=== PATIENT | male | born 1930 | race Caucasian/White ===

== ENCOUNTER 2018-04-27 16:44 | Inpatient (IN) | payer MEDICARE ==
[2018-04-27] MEDS ORDERED: Bisacodyl 10 MG SUPP PR PRN (19:16)
[2018-04-27] MEDS: Senokot S 8.6-50 MG TAB PO SCH (22:04)
[2018-04-27] MEDS: guaiFENesin ER 600 MG TAB PO SCH (22:04)
[2018-04-27] MEDS: Atorvastatin Calcium 10 MG TAB PO SCH (22:04)
[2018-04-27] MEDS: Divalproex Sodium 125 mg Sprinkle Capsule PO SCH (22:04)
[2018-04-27] MEDS: Tamsulosin HCl 0.4 MG CAP PO SCH (22:05)
[2018-04-27] MEDS: hydrALAZINE 25 MG TAB PO SCH (22:05)
[2018-04-27] MEDS: Fluticasone Propionate Nasal Spray 16 gm Bottle NASAL SCH (22:34)
[2018-04-27] MEDS: Acetaminophen 500 MG TAB PO SCH (23:19)
[2018-04-27] MEDS: traMADol HCl 50 MG TAB PO SCH (23:19)
[2018-04-27] MEDS ORDERED: Dextrose 5% in Water 1,000 ML IV PRN (23:43)
[2018-04-27] MEDS ORDERED: Dextrose 50% Abboject 50 ML SYRINGE IVP PRN (23:43)
[2018-04-28] MEDS: HumaLOG 300 UNITS/3 ML VIAL SC PRN ×2 (00:10→13:05)
[2018-04-28] MEDS ORDERED: Ipratropium Bromide 2.5 ml Neb NEB SCH (01:00)
[2018-04-28] MEDS: traMADol HCl 50 MG TAB PO SCH (06:05)
[2018-04-28] MEDS: Acetaminophen 500 MG TAB PO SCH ×3 (06:05→18:06)
[2018-04-28] MEDS ORDERED: Non-Formulary Item 1 EACH (Budesonide-Formoterol [Symbicort 160-4.5] 2 PUFF) INH SCH (07:00)
[2018-04-28] MEDS: Mometasone/Formoterol 60 PUFF AER INH SCH ×2 (07:15→22:01)
[2018-04-28] MEDS ORDERED: Non-Formulary Item 1 EACH (Omeprazole [Prilosec] 20 MG) PO SCH (09:00)
[2018-04-28] MEDS: Polyethylene Glycol 3350 17 GM Packet PO SCH (10:38)
[2018-04-28] MEDS: Fluticasone Propionate Nasal Spray 16 gm Bottle NASAL SCH ×2 (10:38→21:48)
[2018-04-28] MEDS: hydrALAZINE 25 MG TAB PO SCH ×2 (10:41→21:47)
[2018-04-28] MEDS: Furosemide 40 MG TAB PO SCH (10:41)
[2018-04-28] MEDS: Ferrous Sulfate 325 MG TAB PO SCH (10:45)
[2018-04-28] MEDS: Senokot S 8.6-50 MG TAB PO SCH ×2 (10:45→21:48)
[2018-04-28] MEDS: predniSONE 10 MG TAB PO SCH (10:45)
[2018-04-28] MEDS: metFORMIN 500 MG TAB PO SCH (10:46)
[2018-04-28] MEDS: Divalproex Sodium 125 mg Sprinkle Capsule PO SCH ×2 (10:46→21:48)
[2018-04-28] MEDS: guaiFENesin ER 600 MG TAB PO SCH ×2 (10:46→21:48)
[2018-04-28] MEDS: Tamsulosin HCl 0.4 MG CAP PO SCH (21:47)
[2018-04-28] MEDS: Atorvastatin Calcium 10 MG TAB PO SCH (21:48)
[2018-04-29] MEDS: Acetaminophen 500 MG TAB PO SCH ×5 (00:01→17:30)
[2018-04-29] MEDS: Mometasone/Formoterol 60 PUFF AER INH SCH ×2 (08:02→19:07)
[2018-04-29] MEDS: Fluticasone Propionate Nasal Spray 16 gm Bottle NASAL SCH ×2 (08:24→21:52)
[2018-04-29] MEDS: Senokot S 8.6-50 MG TAB PO SCH ×2 (08:25→21:58)
[2018-04-29] MEDS: guaiFENesin ER 600 MG TAB PO SCH ×2 (08:25→21:58)
[2018-04-29] MEDS: Polyethylene Glycol 3350 17 GM Packet PO SCH (08:25)
[2018-04-29] MEDS: predniSONE 10 MG TAB PO SCH (08:26)
[2018-04-29] MEDS: hydrALAZINE 25 MG TAB PO SCH ×2 (08:26→21:58)
[2018-04-29] MEDS: metFORMIN 500 MG TAB PO SCH (08:26)
[2018-04-29] MEDS: Furosemide 40 MG TAB PO SCH (08:26)
[2018-04-29] MEDS: Ferrous Sulfate 325 MG TAB PO SCH (08:26)
[2018-04-29] MEDS: Divalproex Sodium 125 mg Sprinkle Capsule PO SCH ×2 (08:26→21:54)
[2018-04-29] MEDS: HumaLOG 300 UNITS/3 ML VIAL SC PRN ×2 (12:38→17:29)
--- NOTE | 2018-04-29 13:23 | HP ---
DATE OF ADMISSION: 04/27/2018 PRIMARY CARE PHYSICIAN: Dr. Brenden Garsia CHIEF COMPLAINT: Skilled care with physical and occupational therapy, status post left hip arthropla sty. HISTORY OF PRESENT ILLNESS: Mr. 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 The patient underwent hip hemiarthroplasty on 8. He did well intraoperatively. He was referred to our facility for postoperative rehabilitation. The patient has a very weak gait, decreased strength and endurance, hence recommendations for [facility] with physical and occupational therapy. On exam, he was very lethargic with sonor ous breathing with apneic spells with some coughing fits. The patient was hard to arouse. Entire hi story are taken from the hospital and medical records from the clinic. PAST MEDICAL HISTORY: 1. Atherosclerotic cardiovascular disease with multiple stents. 2. COPD with chronic bronchitis. 3. Diabetes mellitus, non-insulin dependent, diet controlled. 4. Hypertension. 5. Hyperlipidemia. 6. Gastroesophageal reflux disease. 7. Peripheral vascular disease. 8. Bipolar disorder. 9. Iron deficiency anemia. PAST SURGICAL HISTORY: 1. Total hip replacement. 2. Stent placement. 3. Bladder surgery. 4. Back surgery. 5. Skin cancer excision. 6. Tonsillectomy and adenoidectomy. FAMILY HISTORY: No history of coronary artery disease and cancer. 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 Patient is a former smoker. Denies alcohol use. He has a niece in [place] who assists with some of his care and finances and is the medical power of title attorney. ALLERGIES: No known drug allergies. MEDICATIONS: 1. Tylenol 1000 mg every 6 hours. 2. Aspirin 81 mg b.i.d. 3. Lipitor 20 mg at bedtime. 4. Biotin 1000 mcg daily. 5. Dulcolax 10 mg daily p.r.n. for constipation. 6. Depakote 250 mg b.i.d. 7. Ferrous sulfate 325 mg daily. 8. Furosemide 40 mg daily. 9. Mucinex 600 mg p.o. q.12 h. p.r.n. 10. Hydralazine 25 mg b.i.d. 11. DuoNeb q.i.d. 12. Imdur 30 mg daily. 13. Metformin 500 mg daily. 14. Mometasone 2 puffs b.i.d. 15. Protonix 40 mg daily. 16. Prednisone 10 mg daily. 17. Flomax 0.4 mg daily. REVIEW OF SYSTEMS: A 10-point review of systems was attempted, but the patient was unable to give an y details because of a current sensorium. PHYSICAL EXAMINATION: VITAL SIGNS: Blood pressure 126/79, temperature 97.6, pulse of 73, RR of 22, O2 sat 97% at 3 liters per nasal cannula. GENERAL: The patient is lethargic with sonorous breathing, arousable on deep stimulation. HEENT: Normocephalic, atraumatic. Pupils equally reactive to light, dry mucous membrane. The patie nt is mouth breathing. NECK: Supple. Negative for lymphadenopathy. Negative for JVD or thyromegaly. LUNGS: Symmetrical expansion, positive prolonged expiratory phase. No rhonchi, no wheezing. CARDIOVASCULAR: Regular rate and rhythm. Negative for murmur, rubs or gallop. ABDOMEN: Distended, soft, normoactive bowel sounds. MUSCULOSKELETAL: No cyanosis or clubbing. Positive for decreased range of motion of both lower extr emities. SKIN: Positive for multiple ecchymosis on both upper and lower extremities. NEUROLOGIC: Unable to assess. LABORATORY DATA: Reviewed. ASSESSMENT: 1. Left lower extremity weakness secondary to left femoral neck fracture status post left hip arthro plasty. 2. Coronary artery disease with multiple stents. 3. Acute on chronic congestive heart failure. 4. Hypertension. 5. Hyperlipidemia. 6. Chronic anemia. 7. Gastroesophageal reflux disease. 8. Esophagitis. 9. Bipolar disorder. 10. Diabetes mellitus. PLAN: Patient will be admitted for skilled with physical and occupational therapy. Prognosis for si gnificant improvement with reasonable time appears fair. We will monitor for infection, bleeding, si de effects of current medication. He will participate with PT to address strength, range of motion, transfer training, gait transfers and safety training with progression to regular exercises at the [facility]. He will participate with OT to address ADLs. We will reconcile his hospital medication and adjust dosage prior to his discharge. Case management to address how the patient can be discharg ed safely in a timely manner. Anticipate discharge back to [facility] in 1-2 week s. CODE STATUS: DNR.
[2018-04-29] MEDS: Tamsulosin HCl 0.4 MG CAP PO SCH (21:55)
[2018-04-29] MEDS: Atorvastatin Calcium 10 MG TAB PO SCH (21:57)
[2018-04-30] MEDS: Acetaminophen 500 MG TAB PO SCH ×5 (01:03→23:10)
[2018-04-30] MEDS: Mometasone/Formoterol 60 PUFF AER INH SCH ×2 (10:07→17:05)
[2018-04-30] MEDS: Divalproex Sodium 125 mg Sprinkle Capsule PO SCH ×2 (10:09→21:19)
[2018-04-30] MEDS: Furosemide 40 MG TAB PO SCH (10:09)
[2018-04-30] MEDS: predniSONE 10 MG TAB PO SCH (10:09)
[2018-04-30] MEDS: Senokot S 8.6-50 MG TAB PO SCH ×2 (10:10→21:17)
[2018-04-30] MEDS: Ferrous Sulfate 325 MG TAB PO SCH (10:10)
[2018-04-30] MEDS: Fluticasone Propionate Nasal Spray 16 gm Bottle NASAL SCH ×2 (10:10→21:12)
[2018-04-30] MEDS: guaiFENesin ER 600 MG TAB PO SCH ×2 (10:10→21:18)
[2018-04-30] MEDS: metFORMIN 500 MG TAB PO SCH (10:11)
[2018-04-30] MEDS: hydrALAZINE 25 MG TAB PO SCH ×2 (10:11→21:23)
[2018-04-30] MEDS: Polyethylene Glycol 3350 17 GM Packet PO SCH (10:12)
[2018-04-30] MEDS: HumaLOG 300 UNITS/3 ML VIAL SC PRN ×2 (12:32→17:53)
[2018-04-30] MEDS: BIOTIN 1000 MCG PO SCH ×2 (15:46→15:47)
[2018-04-30] MEDS: Atorvastatin Calcium 10 MG TAB PO SCH (21:17)
[2018-04-30] MEDS: Tamsulosin HCl 0.4 MG CAP PO SCH (21:19)
[2018-05-01] MEDS: Acetaminophen 500 MG TAB PO SCH ×3 (06:31→18:04)
[2018-05-01] MEDS: Mometasone/Formoterol 60 PUFF AER INH SCH ×2 (06:32→18:05)
[2018-05-01] MEDS: predniSONE 10 MG TAB PO SCH (08:48)
[2018-05-01] MEDS: Furosemide 40 MG TAB PO SCH (08:48)
[2018-05-01] MEDS: Divalproex Sodium 125 mg Sprinkle Capsule PO SCH ×2 (08:49→21:17)
[2018-05-01] MEDS: Senokot S 8.6-50 MG TAB PO SCH ×2 (08:49→21:21)
[2018-05-01] MEDS: hydrALAZINE 25 MG TAB PO SCH ×2 (08:50→21:21)
[2018-05-01] MEDS: metFORMIN 500 MG TAB PO SCH (08:50)
[2018-05-01] MEDS: Fluticasone Propionate Nasal Spray 16 gm Bottle NASAL SCH ×2 (08:51→21:16)
[2018-05-01] MEDS: Ferrous Sulfate 325 MG TAB PO SCH (08:51)
[2018-05-01] MEDS: guaiFENesin ER 600 MG TAB PO SCH ×2 (08:51→21:20)
[2018-05-01] MEDS: Polyethylene Glycol 3350 17 GM Packet PO SCH (08:52)
[2018-05-01] MEDS: HumaLOG 300 UNITS/3 ML VIAL SC PRN ×4 (08:54→21:29)
[2018-05-01] MEDS: Tamsulosin HCl 0.4 MG CAP PO SCH (21:19)
[2018-05-01] MEDS: Atorvastatin Calcium 10 MG TAB PO SCH (21:21)
[2018-05-02] MEDS: Acetaminophen 500 MG TAB PO SCH ×5 (00:58→23:03)
[2018-05-02] MEDS: Mometasone/Formoterol 60 PUFF AER INH SCH ×2 (06:22→17:41)
[2018-05-02] MEDS: Furosemide 40 MG TAB PO SCH (08:32)
[2018-05-02] MEDS: predniSONE 10 MG TAB PO SCH (08:32)
[2018-05-02] MEDS: Divalproex Sodium 125 mg Sprinkle Capsule PO SCH ×2 (08:32→21:18)
[2018-05-02] MEDS: Ferrous Sulfate 325 MG TAB PO SCH (08:32)
[2018-05-02] MEDS: metFORMIN 500 MG TAB PO SCH (08:33)
[2018-05-02] MEDS: Fluticasone Propionate Nasal Spray 16 gm Bottle NASAL SCH ×2 (08:33→21:16)
[2018-05-02] MEDS: guaiFENesin ER 600 MG TAB PO SCH ×2 (08:33→21:18)
[2018-05-02] MEDS: hydrALAZINE 25 MG TAB PO SCH ×2 (08:33→21:18)
[2018-05-02] MEDS: Polyethylene Glycol 3350 17 GM Packet PO SCH (08:35)
[2018-05-02] MEDS: Senokot S 8.6-50 MG TAB PO SCH ×2 (08:35→21:18)
[2018-05-02] MEDS: HumaLOG 300 UNITS/3 ML VIAL SC PRN ×2 (12:25→21:25)
[2018-05-02] MEDS: Tamsulosin HCl 0.4 MG CAP PO SCH (21:18)
[2018-05-02] MEDS: Atorvastatin Calcium 10 MG TAB PO SCH (21:18)
[2018-05-03 05:43] VITALS: BMI 24.4
[2018-05-03] MEDS: Acetaminophen 500 MG TAB PO SCH ×3 (06:05→17:31)
[2018-05-03] MEDS: Mometasone/Formoterol 60 PUFF AER INH SCH ×2 (06:05→18:30)
[2018-05-03] MEDS: Fluticasone Propionate Nasal Spray 16 gm Bottle NASAL SCH ×2 (09:55→22:25)
[2018-05-03] MEDS: Polyethylene Glycol 3350 17 GM Packet PO SCH (09:55)
[2018-05-03] MEDS: Furosemide 40 MG TAB PO SCH (09:56)
[2018-05-03] MEDS: predniSONE 10 MG TAB PO SCH (09:56)
[2018-05-03] MEDS: guaiFENesin ER 600 MG TAB PO SCH ×2 (09:57→21:13)
[2018-05-03] MEDS: Senokot S 8.6-50 MG TAB PO SCH ×2 (09:57→21:14)
[2018-05-03] MEDS: Divalproex Sodium 125 mg Sprinkle Capsule PO SCH ×2 (09:57→21:13)
[2018-05-03] MEDS: metFORMIN 500 MG TAB PO SCH (09:57)
[2018-05-03] MEDS: hydrALAZINE 25 MG TAB PO SCH ×2 (09:58→21:14)
[2018-05-03] MEDS: Ferrous Sulfate 325 MG TAB PO SCH (09:58)
[2018-05-03] MEDS: HumaLOG 300 UNITS/3 ML VIAL SC PRN ×3 (12:31→22:25)
[2018-05-03] MEDS: Atorvastatin Calcium 10 MG TAB PO SCH (21:13)
[2018-05-03] MEDS: Tamsulosin HCl 0.4 MG CAP PO SCH (21:14)
[2018-05-04] MEDS: Acetaminophen 500 MG TAB PO SCH ×3 (01:26→12:35)
[2018-05-04] MEDS: Mometasone/Formoterol 60 PUFF AER INH SCH ×2 (06:33→07:27)
[2018-05-04] MEDS: predniSONE 10 MG TAB PO SCH (09:49)
[2018-05-04] MEDS: Fluticasone Propionate Nasal Spray 16 gm Bottle NASAL SCH (09:49)
[2018-05-04] MEDS: metFORMIN 500 MG TAB PO SCH (09:50)
[2018-05-04] MEDS: Ferrous Sulfate 325 MG TAB PO SCH (09:50)
[2018-05-04] MEDS: Furosemide 40 MG TAB PO SCH (09:50)
[2018-05-04] MEDS: hydrALAZINE 25 MG TAB PO SCH (09:50)
[2018-05-04] MEDS: Divalproex Sodium 125 mg Sprinkle Capsule PO SCH (09:50)
[2018-05-04] MEDS: Senokot S 8.6-50 MG TAB PO SCH (09:50)
[2018-05-04] MEDS: guaiFENesin ER 600 MG TAB PO SCH (09:52)
[2018-05-04] MEDS: Polyethylene Glycol 3350 17 GM Packet PO SCH (09:52)
[2018-05-04] MEDS: HumaLOG 300 UNITS/3 ML VIAL SC PRN ×2 (10:08→12:35)
[2018-05-04 12:28] VITALS: BP 119/59; TEMP 97.7
--- NOTE | 2018-05-05 14:40 | DIS ---
DATE OF ADMISSION: 04/27/2018 DATE OF DISCHARGE: 05/04/2018 PRIMARY CARE PHYSICIAN: Dr. Brenden Garsia and Olivia Cosby NP FINAL DIAGNOSES: 1. Left lower extremity weakness secondary to left femoral fracture, status post left hip arthroplas ty. 2. Coronary artery disease with multiple stents. 3. Acute on chronic congestive heart failure. 4. Hypertension. 5. Hyperlipidemia. 6. Chronic anemia. 7. Chronic obstructive pulmonary disease with chronic bronchitis. 8. Gastroesophageal reflux disease. 9. Diabetes mellitus. 10. Obstructive sleep apnea, oxygen dependent. 11. Esophagitis. 12. Bipolar disorder. HISTORY OF PRESENT ILLNESS/COURSE IN THE [place]: Mr. Nelson is an 87-year-old male, a resi dent of [facility] with history of coronary artery disease with multiple stents, c ongestive heart failure with aortic valve sclerosis, COPD with chronic bronchitis on oxygen, hyperten delgado, chronic anemia, hyperlipidemia, and degenerative joint disease, patient underwent left hip tadeo arthroplasty on 04/25/2018 after a left femoral fracture secondary to fall. He did well intraoperati vely. He was referred to [facility] for postoperative rehabilitati on. Patient has a very weak gait, decreased strength, and endurance prior to his transfer. During h is stay, his vital signs remained stable. He participated physical therapy. The patient is re quiring assistance with bed, chair, and toilet transfer. Prior to his transfer, patient was cooperat dory, but requiring encouragement. The patient did not like sitting at the end of the bed. DISCHARGE MEDICATIONS: 1. Prilosec 20 mg daily. 2. Imdur ER 30 mg 1 tablet daily. 3. DuoNeb 1 neb q.i.d. 4. Lipitor 20 mg at bedtime. 5. Depakote 250 mg b.i.d. 6. Spiriva 2 inhalations daily. 7. Albuterol nebulizers every 4 hours as needed. 8. Albuterol sulfate 2 puffs inhalation every 4 hours as needed. 9. Ferrous sulfate 325 mg 1 tablet daily. 10. Flonase 2 sprays b.i.d. 11. Symbicort 160/4.5 mg 2 puffs inhalation b.i.d. 12. Apresoline 25 mg b.i.d. 13. Metformin 500 mg 1 tablet daily. 14. Lasix 20 mg daily. 15. Dulcolax 10 mg per rectal daily as needed. 16. Biotin 1000 mcg daily. 17. Prednisone 10 mg daily with breakfast. 18. Tylenol 1000 mg every 4 hours for pain. 19. Dulcolax 10 mg per rectal as needed. 20. Flomax 0.4 mg 1 tablet daily. 21. Tramadol 50 mg every 6 hours p.r.n. for pain. 22. Aspirin 81 mg b.i.d. 23. Mucinex 600 mg ever 12-hour p.r.n. for cough. DIET: Diabetic diet. ACTIVITIES: Orthopedic limitations. The patient will require assistance with transfers, bathing, dr essing and other activities of daily living. Patient will need to use wheelchair for ambulation. DISPOSITION: Discharge to [facility]. Follow up with Dr. Barakat on 05/04/2018. CODE STATUS: DNR.
== END 2018-05-04 13:40 | DRG 561 ==
LOC: BURMED 17:35
PROVIDERS: ADMIT Family Medicine; ATTEND Family Medicine
DX: S72.002D Fracture of unspecified part of neck of left femur, subsequent encounter for closed fracture with routine healing (principal); I25.10 Atherosclerotic heart disease of native coronary artery without angina pectoris; J44.9 Chronic obstructive pulmonary disease, unspecified; Z99.81 Dependence on supplemental oxygen; E78.5 Hyperlipidemia, unspecified; M19.90 Unspecified osteoarthritis, unspecified site; Z96.642 Presence of left artificial hip joint; D50.9 Iron deficiency anemia, unspecified; Z85.828 Personal history of other malignant neoplasm of skin; I35.8 Other nonrheumatic aortic valve disorders; Z66 Do not resuscitate; K21.0 Gastro-esophageal reflux disease with esophagitis; E11.9 Type 2 diabetes mellitus without complications; F32.9 Major depressive disorder, single episode, unspecified; G47.33 Obstructive sleep apnea (adult) (pediatric); I11.0 Hypertensive heart disease with heart failure; I50.9 Heart failure, unspecified
CPT/HCPCS: 36416; 94664; G8987-GO-CM; G8988-GO-CL; G8996-GN-CL; G8997-GN-CK; J7512; J7620; J7644